=== PATIENT | male | born 2005 | race Caucasian/White ===

== ENCOUNTER 2024-11-28 15:43 | Emergency (ER) | payer SELFPAY ==
[2024-11-28 15:52] VITALS: BP 102/67; PULSE 108; RESP 18; TEMP 36.9; O2SAT 98
--- NOTE | 2024-11-28 16:15 | DI.CT_ITS ---
Exam(s) CT HEAD WO EXAM: CT HEAD WO CLINICAL HISTORY: Seizures, change in frequency. TECHNIQUE: Imaging Protocol: Axial computed tomography images with coronal and sagittal reformatted images were created and reviewed COMPARISON: No exams were available for comparison FINDINGS: Ventricles and Extra axial spaces: Normal in size and morphology for the patient's age. Hemorrhage: None. Cerebral parenchyma: No evidence of acute infarct or mass. Midline shift: None. Brainstem/Cerebellum: Normal. Calvarium: Normal. Visualized Paranasal sinuses:Clear. Mastoids: Clear. Soft Tissues: Unremarkable. ORBITS: Unremarkable. PITUITARY: Not enlarged. IMPRESSION: No acute intracranial process. RADIATION DOSE DELIVERED: Total DLP DATA REPOSITORY: All CT scans at this facility are submitted to the National Radiology Data Registry (NRDR) Dose Index Registry (DIR) with the [employer] ([employer]). RADIATION OPTIMIZATION: All CT scans at this facility use at least one of these dose optimization te chniques: automated exposure control; mA and/or kV adjustment per patient size (includes targeted exa ms where dose is matched to clinical indication); or iterative reconstruction.
--- NOTE | 2024-11-28 16:34 | ED.GENADUL_ITS ---
Discharge Plan Disposition Patient Disposition: Home Condition: Stable Discharge Details Clinical Impression: Oral ulcer, Seizure disorder Primary Care Provider: None,None ED Provider: Shantelle Ambrosio Home Meds and New Rx's Prescriptions: No Action albuterol sulfate 0.63 MG/3 ML solution for nebulization 0.63 mg Inhalation Q4H PRN Patient Comments: 11/14/17- USE Q 4-6 HRS PRN, GIVEN TO PT AT ER ibuprofen 200 MG capsule 400 mg PO PRN PRN Patient Comments: vomitted last dose acetaminophen [Mapap Extra Strength] 500 MG tablet 1 tab PO PRN PRN Discharge Instructions Instructions: Mouth Sores (DC) Additional Instructions: You were seen in the emergency department today for an injury to the inside of your cheek caused potentially by a seizure during sleep. In our department you had a full physical examination performed, had a CT scan that did not show any concerning abnormalities and had laboratory studies that were reassuring. There is no sign of infection that requires antibiotics in your mouth, but you do need to follow-up with a primary care provider as well as a neurologist, and referrals for both of these were sent by this department. Please continue to maintain good hydration and nutrition and return to the emergency department with any concerns, especially if you have intractable seizures, fever or chills, change in responsiveness, etc. Thank you for allowing us to be part of your care. HPI General Mode of arrival: ambulatory . Date/Time Provider Initiated Documentation: 11/28/24 15:55 . Limitations to Documentation: no limitations . Information obtained by: patient and old records reviewed . HPI Narrative: HPI: This is a 19-year-old male patient without significant past medical history but who does have a history of a not well characterized seizure disorder, not currently on medications, presenting for evaluation of an injury inside his cheek. Patient reports that 4 nights ago he woke up in the morning and noted pain in the inside of his cheek. He thought that he potentially bit his cheek during a seizure, as he states that he will often have seizure-like activity while sleeping, which occurs inconsistently. He states that he has not noted an increase in seizure activity. States that his girlfriend notices that he clenches up and tenses, is able to wake him up but he is confused afterwards and very tired. The patient reports that he has not been seen by a healthcare provider in several years, does not take any antiseizure medications. He has not had any recent fevers, illness, or injuries other than the inside of his cheek. He has been using topical anesthetic ointment in the area. Reports that he vapes nicotine, uses marijuana, alcohol only occasionally, has never undergone alcohol withdrawal. Exam: Gen: Awake and alert, in no apparent distress HEENT: Non-icteric sclera, PERRL. The patient has a small ulcer to the inside of his right cheek, without surrounding redness, purulence. Noted poor dentition without apical abscess. Neck: Supple Lungs: No apparent respiratory distress, normal respiratory effort. CV: Appears well perfused, heart with regular rate and rhythm, strong distal pulses Abdomen: Non-distended MSK: Moves 4 extremities without apparent limitation in ROM Skin: Visualized skin without rashes, cyanosis. Neuro: Normal Gait, no obvious focal deficits or facial asymmetry. Speaks in full, clear sentences. Psych: Appropriate for situation. MDM: This is a 19-year-old male patient presenting for evaluation of an injury to the inside of his cheek, which appears to be an ulcer which could have been caused by a canker sore, or could have an injury due to biting. No evidence for infection. Certainly my differential also includes seizure disorder, which could be due to intracranial mass or hemorrhage, metabolic and electrolyte derangements, kidney or liver dysfunction, substance use or withdrawal syndromes. I had an extended conversation with this patient, who is unfortunately not well tied in with the medical care system. Ultimately we have elected to rule out emergent causes of seizure activity with a CT of the head, as well as basic laboratory studies to include CBC, CMP, magnesium, TSH. I do not see an indication at this time to initiate antibiotics for the ulcer in his mouth as it does not appear to have associated superinfection. Additionally, we will refer this patient to establish with primary care. ED Course: I independently interpreted the laboratory studies, which show no significant leukocytosis, anemia, or thrombocytopenia. The chemistry panel is without evidence of electrolyte abnormality, kidney dysfunction, or liver injury. TSH on the low side of normal. Independently interpreted the patient's CT head which shows no evidence of intracranial hemorrhage, mass effect, or other concerning findings. I provided the patient with a referral to establish care with a primary care doctor as well as neurology for his seizure disorder. At this time, the patient has had a full medical evaluation and is safe for discharge to home. They are hemodynamically stable, ambulatory, and tolerating PO. They are understanding of the follow-up plan and return precautions. They left our facility without incident. Shantelle Ambrosio MD Related Data Home Medications ?Medication ?Instructions ?Recorded ?Confirmed acetaminophen 500 mg tablet (Mapap 1 tab PO PRN PRN 11/07/17 11/28/24 Extra Strength) ibuprofen 200 mg capsule 400 mg PO PRN PRN 11/07/17 11/28/24 albuterol sulfate 0.63 mg/3 mL 0.63 mg inhalation Q4H PRN 11/14/17 11/28/24 solution for nebulization Allergies Allergy/AdvReac Type Severity Reaction Status Date / Time amoxicillin Allergy Anaphylaxis Unverified 11/28/24 15:56 cephalexin (From Keflex) Allergy Anaphylaxis Unverified 11/28/24 15:56 Penicillins Allergy Anaphylaxis Unverified 11/28/24 15:56 sulfamethoxazole (From Allergy Unknown Unverified 11/28/24 15:56 Bactrim) trimethoprim (From Bactrim) Allergy Unknown Unverified 11/28/24 15:56 General Stated Complaint: FacialProb BHARATI: 4 Course Vital Signs Vital signs: Vital Signs Temperature 36.9 C 11/28/24 15:52 Pulse 108 H 11/28/24 15:52 Respiratory Rate 18 11/28/24 15:52 Blood Pressure 102/67 11/28/24 15:52 Pulse Oximetry 98 11/28/24 15:52 Temperature 36.9 C 11/28/24 15:52 Pulse 108 H 11/28/24 15:52 Respiratory Rate 18 11/28/24 15:52 Blood Pressure 102/67 11/28/24 15:52 Pulse Oximetry 98 11/28/24 15:52 Pain Level 5 11/28/24 16:02 Medical Decision Making Quality:SDOH Health Related Social Needs: No Data to Display PFSH All Active Problems (Updated 11/28/24 @ 17:40 by Shantelle Ambrosio MD) Seizure disorder (Chronic) Oral ulcer (Acute) Medical History (Updated 11/28/24 @ 17:40 by Shantelle Ambrosio MD) ADHD Heart murmur Surgical History (Updated 10/17/18 @ 14:33 by [place]) Tonsillectomy and adenoidectomy Family History Mother Asthma Grandmother Essential hypertension MGM Heart disease MGM Mental disorder MGM-DEPRESSION/ANXIETY COPD (chronic obstructive pulmonary disease) MGM Social History Smoking/Tobacco Use Status: Current every day Tobacco Type: e-cigarettes Smoking risk assessment performed?: Yes Alcohol Intake: current Alcohol Intake frequency: a few times a month Alcohol type: beer Drug use: Never Substance use type: marijuana Do you feel safe at home: Yes Do you feel safe in your relationship?: Yes
[2024-11-28 16:58] LABS: Abs Immature Grans 0.02 10^3/uL (0.0-0.06); Absolute Basophil Count 0.06 10^3/uL (0.0-0.2); Absolute Eosinophil Count 0.07 10^3/uL (0.0-0.7); Absolute Lymphocyte Count 2.06 10^3/uL (1.2-3.4); Absolute Monocyte Count 0.56 10^3/uL (0.1-0.8); Absolute Neutrophil Count 4.42 10^3/uL (1.2-6.7); Basophils % 0.8 %; HCT 42.8 % (40.0-50.0); HGB 15.6 g/dL (13.5-17.5); Immature Grans % 0.3 %; Lymphocytes % 28.7 %; MCH 31.4 pg (27.0-33.0); MCHC 36.4 % (32.0-36.0); MCV 86 fL (80-95); MPV 10.5 fL (8.0-11.0); Monocytes % 7.8 %; Neutrophils % 61.4 %; Platelet Count 275 10^3/uL (130-400); RBC 4.97 10^6/uL (4.36-5.78); RDW-SD 38.3 fL; WBC 7.19 10^3/uL (4.4-10.8)
[2024-11-28 17:21] LABS: ALT 15 U/L (16-63); AST 14 U/L (15-37); Albumin 4.7 g/dL (3.4-5.0); Alkaline Phosphatase 64 U/L (46-116); Anion Gap 7.3 mmol/L (3-11); BUN 11 mg/dL (7-18); Bilirubin, Total 0.55 mg/dL (0.2-1.0); CO2 29.7 mmol/L (21.0-32.0); CREATININE 1.2 mg/dL (0.70-1.30); Calcium 9.4 mg/dL (8.5-10.1); Chloride 106 mmol/L (98-107); Estimated GFR 88.24 (mL/min/1.73m2); Glucose 87 mg/dL (74-106); Magnesium 1.9 mg/dL (1.8-2.4); Potassium 4.4 mmol/L (3.5-5.1); Sodium 143 mmol/L (136-145); TSH (W/Ref FT4) 0.38 uIU/mL (0.36-3.74); Total Protein 7.9 g/dL (6.4-8.2)
[2024-11-28 17:52] VITALS: BP 108/66; PULSE 86; RESP 16; TEMP 36.8; O2SAT 96
== END 2024-11-28 17:55 | disposition home or self-care (01) ==
PROVIDERS: Emergency Provider Emergency Medicine
DX: K12.1 Other forms of stomatitis (principal); G40.909 Epilepsy, unspecified, not intractable, without status epilepticus; F17.210 Nicotine dependence, cigarettes, uncomplicated
CPT/HCPCS: 36415; 80053; 99284; 70450; 83735; 84443; 85025